=== PATIENT | female | born 1990 | race Caucasian/White ===

== ENCOUNTER 2023-03-23 21:43 | Emergency (ER) | payer OTHER ==
[~2023-03-23] VITALS: Ht 162.6 cm; Wt 60.3 kg
[2023-03-23 22:00] VITALS: BP 117/66; PULSE 122; RESP 22; TEMP 103.1; O2SAT 96
[2023-03-23] MEDS ORDERED: ACETAMINOPHEN 325 MG TAB PO ONE (22:10)
[2023-03-23 23:04] LABS: APPEARANCE,URINE CLEAR (CLEAR); BILIRUBIN,URINE NEGATIVE (NEGATIVE); BLOOD, URINE 3+ (NEGATIVE); COLOR,URINE YELLOW (YELLOW); LEUKOCYTE ESTERASE ,URINE 2+ (NEGATIVE); NITRITE, URINE POSITIVE (NEGATIVE); PROTEIN,URINE 2+ (NEGATIVE); UGLUCOSE NEGATIVE (NEGATIVE); UROBILINOGEN,URINE 0.2 EU/dL (0.2 - 1)
[2023-03-23] MEDS ORDERED: ONDANSETRON 4 MG/2 ML VIAL IVP ONE (23:05)
[2023-03-23] MEDS ORDERED: NACL 0.9% 1,000 ML IV ONE (23:05)
[2023-03-23 23:07] LABS: BACTERIA,URINE >30 (MANY) /HPF (None Seen); MUCUS,URINE 1+ /LPF (None Seen); SQUAMOUS EPITHELIAL CELL,UR 0-3 (FEW) /LPF (0-3 (FEW)); WBC,URINE TOO MANY TO COUNT /HPF (0-5)
[2023-03-23 23:18] LABS: BASOPHILS % (AUTO) 0.3 % (0.0-2.0); HEMATOCRIT 32.4 % (36-48); HEMOGLOBIN 10.9 g/dL (12.0-16.0); LYMPHOCYTES # (AUTO) 0.8 K/uL (2.5-16.5); LYMPHOCYTES % (AUTO) 5.1 % (20.5-51.1); MEAN CORPUSCULAR HEMOGLOBIN 28 pg (27-31); MEAN CORPUSCULAR HGB CONC 34 g/dL (33-37); MEAN CORPUSCULAR VOLUME 83.5 fL (80-94); MONOCYTES # (AUTO) 1.5 K/uL (0.8-1.0); MONOCYTES % (AUTO) 8.9 % (1.7-9.3); NEUTROPHILS # (AUTO) 14.2 K/uL (1.8-7.7); NEUTROPHILS % (AUTO) 85.7 % (42.2-75.2); PLATELET COUNT (AUTO) 223 K/uL (140-450); RED BLOOD CELL COUNT(AUTO) 3.88 MIL/uL (4.20-5.40); RED CELL DISTRIBUTION WIDTH 13.9 % (11.6-13.7); WHITE BLOOD COUNT (AUTO) 16.5 K/uL (4.8-10.8)
[2023-03-23 23:30] LABS: ANION GAP 14.1 (8-16); CALCIUM 8.5 mg/dL (8.5-10.1); CARBON DIOXIDE 25.1 mmol/L (21-32); POTASSIUM 3.2 mmol/L (3.5-5.1)
[2023-03-23 23:36] LABS: ALBUMIN 2.9 g/dL (3.4-5.0); BILIRUBIN,DIRECT 0.1 mg/dL (0.0-0.3); TOTAL BILIRUBIN 0.3 mg/dL (0.0-1.0); TOTAL PROTEIN, SERUM 8.4 g/dL (6.4-8.2)
[2023-03-23] MEDS ORDERED: cefTRIAXone 1,000 MG VIAL ONE (23:56)
[2023-03-24] MEDS ORDERED: CEFD300C3 PO (01:07)
[2023-03-24] MEDS ORDERED: ONDA-188 SL (01:07)
[2023-03-24] MEDS ORDERED: NAPR-1704 PO (01:07)
[2023-03-24 01:27] VITALS: BP 101/55; PULSE 79; RESP 18; TEMP 98.4; O2SAT 98
== END 2023-03-24 01:27 | disposition home or self-care (01) ==
LOC: MED 21:43
DX: N12 Tubulo-interstitial nephritis, not specified as acute or chronic (principal); R00.0 Tachycardia, unspecified; Z79.899 Other long term (current) drug therapy; Z79.1 Long term (current) use of non-steroidal anti-inflammatories (NSAID); Z79.2 Long term (current) use of antibiotics
CPT/HCPCS: 36415; 80048; 80076; 81001; 81025; 83605; 83690; 85025; 87040; 87086; 96361; 96365; 96375; 99284; J0696; J2405; J7030